=== PATIENT | female | born 1970 | race African-American/Black ===

== ENCOUNTER 2016-11-05 10:33 | Emergency (ER) | payer SELFPAY ==
[~2016-11-05] VITALS: Ht 160 cm; Wt 120.0 kg
[~2016-11-05 10:33] MED LIST: DOCU1CAP39 PO; IBUP800T23 PO; LORTA5 PO; ONETAB3 PO; PRIL20CA PO
[2016-11-05 10:35] VITALS: BP 130/82; PULSE 66; RESP 20; TEMP 97.4; O2SAT 96
--- NOTE | 2016-11-05 10:59 | PD ---
HPI Chief Complaint: Headache Time Seen by Provider: 10:59 Travel History International Travel<30 days: No Contact w/Intl Traveler<30days: No Traveled to known affect area: No History of Present Illness HPI 45-year-old female with history of anxiety, depression, HLD, HTN, GERD, Chiari malformation status post surgery 2001 presents to the ED for evaluation of 3 day history of momentary, episodic dizziness. Exacerbated by rising to a standing position. Also endorses tingling on the right side of the face. Patient states that while at work today she was having a dizzy episode and began to experience a gradual onset headache, rated 9/10, located behind the right eye. The patient endorses photophobia. She denies pain with ocular movements, vision changes. She denies history of similar headaches. She also states that she feels weak. She denies fever, chills, ear pain, sinus congestion, palpitations, chest pain, shortness of breath, abdominal pain, nausea, vomiting, dysuria, back pain. Treated with 800 mg ibuprofen with no improvement of symptoms. She endorses receiving this years flu vaccine. PFSH Past Medical History Anemia: Yes (GESTATIONAL) Arthritis: Yes (LEFT KNEE) Anxiety: Yes Depression: Yes Cancer: No Cardiovascular Problems: No High Cholesterol: Yes (DIET CONTROLLED) Chest Pain: Yes Diabetes: No Diminished Hearing: No Endocrine: No Gastrointestinal Disorders: Yes (ACID REFLUX) GERD: Yes Genitourinary: No Hepatitis: No Hiatal Hernia: No Hypertension: Yes Immune Disorder: No Neurologic: Yes (ARNOLD-CHIARI MALFORMATION) Psychiatric: No Reproductive: Yes (UTERINE FIBROIDS) Respiratory: No Migraines: No Thyroid Disease: No ?: Not Menopausal: No : 3 Para: 3 Ovarian Cysts: Yes Tubal Ligation: Yes (1988) Past Surgical History Abdominal Surgery: No AICD: No Body Medical Devices: NONE Cardiac Surgery: No Ear Surgery: No Endocrine Surgery: No Eye Surgery: No Genitourinary Surgery: No Gynecologic Surgery: Yes (HYSTERECTOMY) Hysterectomy: Yes Joint Replacement: No Neurologic Surgery: Yes (BRAIN SX 2001: CHIARI MALFORMATION) Oral Surgery: No Pacemaker: No Thoracic Surgery: No Other Surgery: Yes (CYST ON SPINE, BRAIN SURGERY) Social History Alcohol Use: Yes (OCCASIONAL) Tobacco Use: No (QUIT: 2013) Substance Use: No Allergies-Medications (Allergen,Severity, Reaction): Coded Allergies: No Known Allergies (Verified , 11/05/16) Reported Meds & Prescriptions Reported Meds & Active Scripts Active Colace 100 Mg Cap (Docusate Sodium) 100 Mg Cap 100 Mg PO BID Hydrocodone/Acetaminophen 5 mg/325 mg 1 Tab 1 Tab PO Q6H PRN Ibuprofen 800 Mg Tab 800 Mg PO Q6 PRN Reported One Daily Womens (Multiple Vitamins W/ Minerals) Womens Tab PO DAILY Prilosec 20 mg (Omeprazole) 20 Mg Capcr 20 Mg PO DAILY Review of Systems Except as stated in HPI: all other systems reviewed are Neg Physical Exam Narrative GENERAL: Well-nourished, well-developed obese black female in no acute distress. SKIN: Warm and dry. HEAD: Normocephalic. Atraumatic. EYES: No scleral icterus. No injection or drainage. PERRLA. EOMI. ENT: Pearly raygoza tympanic membranes bilaterally. Nasal mucosa is moist. Oropharynx without erythema, edema or exudate. NECK: Supple, trachea midline. No JVD or lymphadenopathy. No midline tenderness to palpation. No limitations to ROM. Mildly tender to palpation of the right-sided sternocleidomastoid. CARDIOVASCULAR: Regular rate and rhythm without murmurs, gallops, or rubs. No carotid bruits. 2+ DP and radial pulses bilaterally. RESPIRATORY: Breath sounds clear and equal bilaterally. No accessory muscle use. GASTROINTESTINAL: Abdomen soft, non-tender, nondistended. + Bowel sounds MUSCULOSKELETAL: No cyanosis, or edema. The patient is ambulatory, moves the extremities spontaneously. NEUROLOGICAL: Awake and alert. Cranial nerves II through XII intact. Motor and sensory grossly within normal limits. No pronator drift. 5/5 distribution tech strength, triceps strength, biceps strength, dorsiflexion, plantarflexion, knee and hip flexion. Normal speech. BACK: No obvious deformity. No CVA tenderness. Tender to palpation of the right trapezius. Data Data Last Documented VS Vital Signs Date Time Temp Pulse Resp B/P Pulse Ox O2 Delivery O2 Flow Rate FiO2 11/05/16 13:41 68 18 136/80 97 Room Air 11/05/16 10:35 97.4 Orders Complete Blood Count With Diff (11/05/16 11:11) Comprehensive Metabolic Panel (11/05/16 11:11) Prothrombin Time / Inr (Pt) (11/05/16 11:11) Act Partial Throm Time (Ptt) (11/05/16 11:11) Ct Brain W/O Iv Contrast(Rout) (11/05/16 11:11) Iv Access Insert/Monitor (11/05/16 11:11) Sodium Chloride 0.9% Flush (Ns Flush) (11/05/16 11:15) Ketorolac Inj (Toradol Inj) (11/05/16 11:15) Prochlorperazine Inj (Compazine Inj) (11/05/16 11:15) Diphenhydramine Inj (Benadryl Inj) (11/05/16 11:15) Sodium Chlor 0.9% 1000 Ml Inj (Ns 1000 M (11/05/16 11:11) Urinalysis - C+S If Indicated (11/05/16 11:11) Orthostatic Blood Pressure (11/05/16 11:11) Labs Laboratory Tests Test 11/05/16 11/05/16 11:33 13:01 White Blood Count 5.5 TH/MM3 Red Blood Count 3.99 MIL/MM3 Hemoglobin 12.0 GM/DL Hematocrit 36.9 % Mean Corpuscular Volume 92.6 FL Mean Corpuscular Hemoglobin 30.0 PG Mean Corpuscular Hemoglobin 32.4 % Concent Red Cell Distribution Width 14.3 % Platelet Count 205 TH/MM3 Mean Platelet Volume 8.8 FL Neutrophils (%) (Auto) 50.9 % Lymphocytes (%) (Auto) 38.2 % Monocytes (%) (Auto) 10.3 % Eosinophils (%) (Auto) 0.0 % Basophils (%) (Auto) 0.6 % Neutrophils # (Auto) 2.8 TH/MM3 Lymphocytes # (Auto) 2.1 TH/MM3 Monocytes # (Auto) 0.6 TH/MM3 Eosinophils # (Auto) 0.0 TH/MM3 Basophils # (Auto) 0.0 TH/MM3 CBC Comment DIFF FINAL Differential Comment Prothrombin Time 10.7 SEC Prothromb Time International 1.0 RATIO Ratio Activated Partial 25.9 SEC Thromboplast Time Sodium Level 140 MEQ/L Potassium Level 4.2 MEQ/L Chloride Level 107 MEQ/L Carbon Dioxide Level 29.6 MEQ/L Anion Gap 3 MEQ/L Blood Urea Nitrogen 20 MG/DL Creatinine 0.89 MG/DL Estimat Glomerular Filtration 83 ML/MIN Rate Random Glucose 83 MG/DL Calcium Level 8.6 MG/DL Total Bilirubin 0.3 MG/DL Aspartate Amino Transf 18 U/L (AST/SGOT) Alanine Aminotransferase 31 U/L (ALT/SGPT) Alkaline Phosphatase 47 U/L Total Protein 7.5 GM/DL Albumin 3.5 GM/DL Urine Color YELLOW Urine Turbidity HAZY Urine pH 6.0 Urine Specific Perry 1.031 Urine Protein TRACE mg/dL Urine Glucose (UA) NEG mg/dL Urine Ketones NEG mg/dL Urine Occult Blood NEG Urine Nitrite NEG Urine Bilirubin NEG Urine Urobilinogen LESS THAN 2.0 MG/DL Urine Leukocyte Esterase TRACE Urine RBC 1 /hpf Urine WBC 1 /hpf Urine Squamous Epithelial 13 /hpf Cells Urine Bacteria RARE /hpf Urine Mucus FEW /lpf Microscopic Urinalysis Comment CULT NOT INDICATED MDM Medical Decision Making Medical Screen Exam Complete: Yes Emergency Medical Condition: Yes Differential Diagnosis Cephalgia versus musculoskeletal pain versus migraine versus ICH versus anemia versus electrolyte abnormality versus orthostatic hypotension versus hypoglycemia versus other Narrative Course 45-year-old female with history of anxiety, depression, HLD, HTN, GERD, Chiari malformation s/p surgery 2001 presents to the ED for evaluation of 3 day history of momentary, episodic dizziness. Exacerbated by rising to a standing position. Patient states that while at work today she was dizzy and began to experience a gradual onset headache, rated 9/10, located behind the right eye, accompanied by tingling of the face and photophobia. Also states that she feels weak. She denies pain with ocular movements, vision changes, history of similar headaches, fever, chills, ear pain, sinus congestion, palpitations, chest pain, shortness of breath, abdominal pain, nausea, vomiting, dysuria, back pain. Vitals reviewed. Physical exam reveals an obese black woman, lying in a dark room in no acute distress. ENT exam is unremarkable. PERRLA, EOM intact and painless. No focal neural deficits. No pronator drift. Mildly tender to palpation of the right-sided sternocleidomastoid and trapezius muscles. No midline tenderness to palpation of the neck. 5/5 strength in all muscle groups. IV was established. Patient was administered Benadryl, Compazine, Toradol and a liter of normal saline. CBC: WBC 5.5, Hgb 12.0. INR 1.0. BMP: BUN 20, otherwise unremarkable. UA: No indication for culture. Orthostatic vitals: Negative for hypotension. CT of the brain reveals no acute intracranial findings per radiology read. On recheck the patient endorses complete resolution of all symptoms. I discussed the patient, workup, findings, plan of care with Dr. Thapa. Discussed the results of the lab work and CT with the patient. She was reassured by the negative findings. Patient is instructed to rest, hydrate Diagnosis Primary Impression: Cephalgia Qualified Code: R51 - Nonintractable episodic headache, unspecified headache type Referrals: Primary Care Physician Patient Instructions: Acute Headache (ED), General Instructions, Ocular Migraine (ED) Additional Instructions: Rest, hydrate. Avoid known stressors. Follow-up with your primary care provider this week for further evaluation of headache. Vision changes, slurred speech, facial droop occurring with headaches are emergent signs to return to the ED. Return to the ED for any urgent or emergent medical condition. Disposition: 01 DISCHARGE HOME Condition: Stable Maty Mcclain Nov 05, 2016 10:59
[2016-11-05] MEDS ORDERED: SODIUM CHLOR 0.9% 1000 ML INJ 1,000 ML IV ONE (11:11)
[2016-11-05] MEDS ORDERED: PROCHLORPERAZINE INJ 10 MG/2 ML VIAL IVP ONE (11:15)
[2016-11-05] MEDS ORDERED: KETOROLAC TROMETHAMINE 30 MG/ML (IVP) VIAL IVP ONE (11:15)
[2016-11-05] MEDS ORDERED: diphenhydrAMINE HCL 50 MG/ML VIAL IVP ONE (11:15)
[2016-11-05] MEDS ORDERED: SODIUM CHLORIDE 0.9% FLUSH 5 ML FLUSH IVF PRN (11:15)
[2016-11-05 11:50] LABS: AUTOMATED NEUTROPHIL # 2.8 TH/MM3 (1.8-7.7); BASOPHIL % 0.6 % (0.0-2.0); HEMATOCRIT 36.9 % (35.0-46.0); HEMO FLAGS DIFF FINAL; LYMPH % 38.2 % (9.0-44.0); LYMPHOCYTE # 2.1 TH/MM3 (1.0-4.8); MEAN CELL VOLUME 92.6 FL (80.0-100.0); MEAN CORPUSCULAR HGB CONC 32.4 % (32.0-36.0); MONO % 10.3 % (0.0-8.0); NEUT % 50.9 % (16.0-70.0); PLATELET COUNT 205 TH/MM3 (150-450); RED BLOOD COUNT 3.99 MIL/MM3 (4.00-5.30); RED CELL DISTRIBUTION WIDTH 14.3 % (11.6-17.2); WHITE BLOOD COUNT 5.5 TH/MM3 (4.0-11.0)
[2016-11-05 12:01] LABS: APTT (PATIENT) 25.9 SEC (24.3-30.1); PROTHROMBIN TIME - PATIENT 10.7 SEC (9.8-11.6)
[2016-11-05 12:06] LABS: ALT (GPT) 31 U/L (10-53); ANION GAP 3 MEQ/L (5-15); AST (GOT) 18 U/L (15-37); BICARBONATE 29.6 MEQ/L (21.0-32.0); BLOOD UREA NITROGEN 20 MG/DL (7-18); CHLORIDE 107 MEQ/L (98-107); GLOMERULAR FILTRATION RATE 83 ML/MIN (>89); POTASSIUM 4.2 MEQ/L (3.5-5.1); SODIUM (NA) 140 MEQ/L (136-145)
[2016-11-05 12:08] LABS: ALKALINE PHOSPHATASE 47 U/L (45-117); TOTAL BILIRUBIN ADULT 0.3 MG/DL (0.2-1.0)
--- NOTE | 2016-11-05 12:11 | RADRPT ---
EXAM DATE/TIME: 11/05/2016 11:39 [facility] COMPARISON: No previous studies available for comparison. INDICATIONS : Dizziness and generalized weakness, right side headache. RADIATION DOSE: 56.35 CTDIvol (mGy) MEDICAL HISTORY : Hypertension. Chiari malformation. SURGICAL HISTORY : Hysterectomy. Brain surgery to treat Chiari malformation. ENCOUNTER: Initial ACUITY: 1 day PAIN SCALE: 5/10 LOCATION: Right temporal TECHNIQUE: Multiple contiguous axial images were obtained of the head. Using automated exposure control and adj ustment of the mA and/or kV according to patient size, radiation dose was kept as low as reasonably a chievable to obtain optimal diagnostic quality images. FINDINGS: CEREBRUM: The ventricles are normal for age. No evidence of midline shift, mass lesion, hemorrhage or acute in farction. No extra-axial fluid collections are seen. POSTERIOR FOSSA: The cerebellum and brainstem are intact. The 4th ventricle is midline. The cerebellopontine angle i s unremarkable. EXTRACRANIAL: The visualized portion of the orbits is intact. SKULL: The calvaria is intact. No evidence of skull fracture. CONCLUSION: No acute intracranial findings. Garrett Martinez MD on November 05, 2016 at 12:07 Board Certified Radiologist. This report was verified electronically.
[2016-11-05 12:13] VITALS: BP_SYST 120; BP_SYST 163; BP_SYST 168; BP_DIAS 67; BP_DIAS 88; BP_DIAS 93
[2016-11-05 13:31] LABS: BACTERIA, URINE RARE /hpf; BLOOD, URINE NEG (NEG); GLUCOSE,URINE NEG (NEG); KETONE, URINE NEG (NEG); MUCUS URINE FEW /lpf (OCC); NITRITE,URINE NEG (NEG); SQUAMOUS EPITHELIAL CELL URINE 13 /hpf (0-5); URINE COLOR YELLOW (YELLW/STRAW)
[2016-11-05 13:35] LABS: COMMENT (UR) CULT NOT INDICATED; CULTURE IF INDICATED CULT NOT INDICATED
[2016-11-05 13:41] VITALS: BP 136/80; PULSE 68; RESP 18; O2SAT 97
== END 2016-11-05 14:11 | disposition home or self-care (01) ==
LOC: NETRI 10:33
DX: R51 Headache (principal); R20.2 Paresthesia of skin; R53.1 Weakness; E78.5 Hyperlipidemia, unspecified; I10 Essential (primary) hypertension; E78.00 Pure hypercholesterolemia, unspecified; Z87.19 Personal history of other diseases of the digestive system; Z87.39 Personal history of other diseases of the musculoskeletal system and connective tissue; Z86.59 Personal history of other mental and behavioral disorders; Z86.69 Personal history of other diseases of the nervous system and sense organs; Z87.891 Personal history of nicotine dependence
CPT/HCPCS: 70450; 80053; 81001; 85025; 85610; 85730; 96361; 96374; 96375; 99284; J0780; J1200; J1885; J7030

== ENCOUNTER 2017-04-02 00:33 | Emergency (ER) | payer OTHER ==
[~2017-04-02] VITALS: Ht 162.6 cm; Wt 120.0 kg
[2017-04-02 00:37] VITALS: BP 145/85; PULSE 65; TEMP 97.6; O2SAT 100
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
[2017-04-02] MEDS ORDERED: oxyCODONE/ACETAMINOPHEN 5 MG/325 MG TAB PO ONE (02:30)
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
[2017-04-02] MEDS ORDERED: PERC5TAB12 PO (03:53)
== END 2017-04-02 04:09 | disposition home or self-care (01) ==
LOC: NEPE 00:33
DX: S63.501A Unspecified sprain of right wrist, initial encounter (principal); W50.0XXA Accidental hit or strike by another person, initial encounter; Y93.F9 Activity, other caregiving; Y99.0 Civilian activity done for income or pay
CPT/HCPCS: 73060; 73090; 99283

== ENCOUNTER 2017-04-07 14:00 | Emergency (ER) | payer SELFPAY ==
[~2017-04-07] VITALS: Ht 160 cm; Wt 122.5 kg
[~2017-04-07 14:00] MED LIST changes: -DOCU1CAP39 PO; -IBUP800T23 PO; -LORTA5 PO; -ONETAB3 PO; +PERC5TAB12 PO; -PRIL20CA PO
[2017-04-07 14:02] VITALS: BP 132/90; PULSE 76; RESP 20; TEMP 98.2; O2SAT 100
== END 2017-04-07 18:40 | disposition left against medical advice (07) ==
LOC: NED 14:00
DX: Z02.89 Encounter for other administrative examinations (principal)
CPT/HCPCS: 99281